=== PATIENT | female | born 1985 | race Caucasian/White ===

== ENCOUNTER 2018-08-01 07:26 | Day surgery (SDC) | payer BC ==
[2018-08-01] MEDS ORDERED: DIPHENHYDRAMINE 50 MG in SODIUM CHLORIDE 50 ML IVPB ONE (08:30)
[2018-08-01] MEDS ORDERED: ACETAMINOPHEN 325 MG TABLET (FP) PO ONE (08:30)
[2018-08-01] MEDS ORDERED: FERRIC CARBOXYMALTOSE 750 MG in SODIUM CHLORIDE 250 ML IVPB ONE (09:00)
[2018-08-01 13:11] VITALS: TEMP 98.1
[2018-08-01 13:12] VITALS: BP 125/68; PULSE 69
== END 2018-08-01 10:15 | disposition home or self-care (01) ==
LOC: JONCCHEMO 07:26 → JONCNONCHE 07:26 → J7W 08:44 → JONCNONCHE 10:15
PROVIDERS: ATTEND Internal Medicine Hematology & Oncology
PROC: 3E033GC Introduction of Other Therapeutic Substance into Peripheral Vein, Percutaneous Approach (ICD-10-PCS; principal; 2018-08-01)
DX: D50.9 Iron deficiency anemia, unspecified (principal)
CPT/HCPCS: 96365; J1439

== ENCOUNTER 2018-08-08 07:24 | Day surgery (SDC) | payer BC ==
[2018-08-08] MEDS ORDERED: ACETAMINOPHEN 325 MG TABLET (FP) PO ONE (08:45)
[2018-08-08] MEDS ORDERED: FERRIC CARBOXYMALTOSE 750 MG in SODIUM CHLORIDE 250 ML IVPB ONE (09:15)
[2018-08-08 09:16] VITALS: TEMP 98
[2018-08-08 12:59] VITALS: BP 110/69; PULSE 64
== END 2018-08-08 11:30 | disposition home or self-care (01) ==
LOC: JONCNONCHE 07:24 → J7W 08:44 → JONCNONCHE 11:30
PROVIDERS: ATTEND Internal Medicine Hematology & Oncology
PROC: 3E033GC Introduction of Other Therapeutic Substance into Peripheral Vein, Percutaneous Approach (ICD-10-PCS; principal; 2018-08-08)
DX: D50.9 Iron deficiency anemia, unspecified (principal)
CPT/HCPCS: 96365; J1439

== ENCOUNTER 2021-10-01 19:40 | Inpatient (IN) | payer BC ==
[2021-10-01 21:52] LABS: BASO % 0.8 % (0-2.0); EOS % 0.3 % (0-4.5); HEMATOCRIT 36.2 % (32.4-45.2); HEMOGLOBIN 12.2 GM/dL (10.7-15.3); LYMPH % 25.7 % (8-40); MCH 27.8 pg (25.7-33.7); MCHC 33.6 g/dl (32.0-36.0); MEAN CELL VOLUME 82.7 fl (80-96); MEAN PLT VOLUME 10.1 fl (7.5-11.1); MONO % 10.1 % (3.8-10.2); NEUT % 63.1 % (42.8-82.8); PLATELET COUNT 164 10^3/uL (134-434); RBC 4.38 M/mm3 (3.60-5.2); RDW 15.3 % (11.6-15.6); RETICULOCYTES 1.76 % (0.5-1.5); WHITE BLOOD COUNT 5.1 K/mm3 (4.0-10.0)
[2021-10-01 22:00] LABS: INR 0.99 (0.83-1.09); PROTHROMBIN TIME (PATIENT) 11.4 SEC (9.7-13.0)
[2021-10-01] MEDS ORDERED: ELECTROLYTE-148 SOLN 1,000 ML IV SCH (22:00)
[2021-10-01 22:04] LABS: ACTIVATED PTT 29.5 SECONDS (25.2-36.5)
[2021-10-01 22:12] LABS: BLOOD UREA NITROGEN 10.9 mg/dL (7-18); CALCIUM 8.7 mg/dL (8.5-10.1)
[2021-10-01 22:15] LABS: CREATININE 0.6 mg/dL (0.55-1.3)
[2021-10-01 22:16] LABS: URIC ACID 4.4 mg/dL (2.6-7.2)
[2021-10-01] MEDS ORDERED: MAGNESIUM SULFATE 20GM/500ML - 20 GM/500 ML INFUS.BAG ONE (22:53)
[2021-10-01] MEDS ORDERED: MAGNESIUM SULFATE 20GM/500ML - 20 GM/500 ML INFUS.BAG IVPB SCH (23:00)
[2021-10-01] MEDS: ELECTROLYTE-148 SOLN 1,000 ML IV SCH (23:00)
[2021-10-01] MEDS ORDERED: MAGNESIUM 4GM/H20 - 4 GM/100 ML IVPB IVPB SCH (23:00)
[2021-10-01 23:18] LABS: EPI CELLS >36 /uL (0-25.1); HYALINE CASTS 18 /uL (0-3.1); URINE APPEARANCE CLOUDY; URINE BACTERIA 4294 /uL (0-1359); URINE BILIRUBIN 1+ (NEGATIVE); URINE COLOR DK YELLOW; URINE GLUCOSE (UA) NEGATIVE (NEGATIVE); URINE KETONE TRACE (NEGATIVE); URINE LEUK ESTERASE TRACE (NEGATIVE); URINE NITRITE NEGATIVE (NEGATIVE); URINE PROTEIN 4+ (NEGATIVE); URINE RBC 45 /uL (0-23.9); URINE WBC 22 /uL (0-25.8)
[2021-10-01 23:23] VITALS: BMI 44.0
[2021-10-02] MEDS: ELECTROLYTE-148 SOLN 1,000 ML IV SCH (05:00)
[2021-10-02 05:53] LABS: BASO % 0.4 % (0-2.0); EOS % 0.3 % (0-4.5); HEMATOCRIT 35.8 % (32.4-45.2); HEMOGLOBIN 11.5 GM/dL (10.7-15.3); LYMPH % 29.2 % (8-40); MCH 26.9 pg (25.7-33.7); MCHC 32.1 g/dl (32.0-36.0); MEAN CELL VOLUME 83.7 fl (80-96); MEAN PLT VOLUME 10.5 fl (7.5-11.1); MONO % 8.9 % (3.8-10.2); NEUT % 61.2 % (42.8-82.8); PLATELET COUNT 156 10^3/uL (134-434); RBC 4.28 M/mm3 (3.60-5.2); RDW 15.3 % (11.6-15.6)
[2021-10-02 05:54] LABS: RETICULOCYTES 2.17 % (0.5-1.5)
[2021-10-02 06:07] LABS: INR 0.94 (0.83-1.09); PROTHROMBIN TIME (PATIENT) 10.8 SEC (9.7-13.0)
[2021-10-02 06:09] LABS: ACTIVATED PTT 27.6 SECONDS (25.2-36.5)
[2021-10-02 06:13] LABS: CALCIUM 8.5 mg/dL (8.5-10.1); GAMMA GLUTAMYL TRANSPEPTIDASE 18 U/L (5-85); MAGNESIUM 3.6 mg/dL (1.8-2.4)
[2021-10-02 06:16] LABS: SGOT/AST 58 U/L (15-37); SGPT/ALT 79 U/L (13-61); URIC ACID 4.6 mg/dL (2.6-7.2)
[2021-10-02 06:17] LABS: CREATININE 0.4 mg/dL (0.55-1.3)
[2021-10-02] MEDS ORDERED: morphine SULFATE/PF 1 MG/2 ML (2cc Syringe - QUVA) ONE (07:39)
[2021-10-02] MEDS ORDERED: OXYTOCIN 20 UNITS in 0.9% NS 20 UNIT/1,000 ML INFUS.BAG IV ONE ×2 (07:40→17:48)
[2021-10-02] MEDS ORDERED: METHYLERGONOVINE MALEATE 0.2 MG/1 ML AMP IM PRN (07:46)
[2021-10-02] MEDS ORDERED: ePHEDrine SULFATE 50 MG/1 ML AMPULE ONE (07:51)
[2021-10-02] MEDS ORDERED: OXYTOCIN 10 UNITS/ML VIAL ONE ×2 (08:53→08:54)
[2021-10-02] MEDS ORDERED: ONDANSETRON 4 MG/2 ML VIAL ONE (08:54)
[2021-10-02] MEDS ORDERED: ceFAZolin SODIUM 1 GM VIAL ONE ×2 (08:54→17:29)
[2021-10-02] MEDS: MAGNESIUM SULFATE 20GM/500ML - 20 GM/500 ML INFUS.BAG IVPB SCH ×2 (09:30→15:00)
[2021-10-02] MEDS ORDERED: ONDANSETRON 4 MG/2 ML VIAL IVPUSH PRN (09:34)
[2021-10-02] MEDS ORDERED: morphine SULFATE/PF 1 MG/2 ML (2cc Syringe - QUVA) SPIN ONE (09:34)
[2021-10-02 09:36] LABS: CORD HCO3 26.3 mmHg (20-29); CORD PCO2 68.2 mmHg (30-78); CORD pH 7.204 (7.14-7.44)
[2021-10-02 09:39] LABS: CORD BASE EXCESS -4.1 mmol/L (0-2); CORD HCO3 23.9 mmHg (20-29); CORD PCO2 53.5 mmHg (30-78); CORD pH 7.267 (7.14-7.44)
[2021-10-02] MEDS ORDERED: MAGNESIUM SULFATE 20GM/500ML - 20 GM/500 ML INFUS.BAG ONE (14:58)
[2021-10-02 15:16] LABS: BASO % 0.6 % (0-2.0); EOS % 0.2 % (0-4.5); HEMATOCRIT 36.5 % (32.4-45.2); HEMOGLOBIN 11.8 GM/dL (10.7-15.3); LYMPH % 20.4 % (8-40); MCHC 32.3 g/dl (32.0-36.0); MEAN CELL VOLUME 83.4 fl (80-96); MONO % 7.8 % (3.8-10.2); PLATELET COUNT 165 10^3/uL (134-434); RBC 4.37 M/mm3 (3.60-5.2); RDW 15.2 % (11.6-15.6); WHITE BLOOD COUNT 6.4 K/mm3 (4.0-10.0)
[2021-10-02 15:36] LABS: ALBUMIN 2.1 g/dl (3.4-5.0); BLOOD UREA NITROGEN 9.6 mg/dL (7-18)
[2021-10-02 15:39] LABS: CREATININE 0.4 mg/dL (0.55-1.3)
[2021-10-02 15:41] LABS: BILIRUBIN,TOTAL 0.5 mg/dL (0.2-1); TOT PROT 5.4 g/dl (6.4-8.2)
[2021-10-02 15:43] LABS: MAGNESIUM 4.9 mg/dL (1.8-2.4)
[2021-10-02] MEDS: CEFAZOLIN 1 GM in DEXTROSE 5%-WATER - 1 GM/50 ML IVPB IVPB SCH (17:25)
[2021-10-02] MEDS ORDERED: oxyCODONE HCL 5 MG TABLET PO PRN (19:46)
[2021-10-02] MEDS: ACETAMINOPHEN 325 MG TABLET (FP) PO PRN (21:34)
[2021-10-02] MEDS ORDERED: ACETAMINOPHEN 325 MG TABLET (FP) ONE (21:35)
[2021-10-02] MEDS: oxyCODONE HCL 5 MG TABLET PO PRN (21:39)
[2021-10-02] MEDS ORDERED: oxyCODONE HCL 5 MG TABLET ONE (21:41)
[2021-10-03] MEDS: CEFAZOLIN 1 GM in DEXTROSE 5%-WATER - 1 GM/50 ML IVPB IVPB SCH ×2 (00:43→08:38)
[2021-10-03] MEDS: SIMETHICONE 80 MG TAB.CHEW (FP) PO PRN ×2 (02:33→08:38)
[2021-10-03] MEDS: oxyCODONE HCL 5 MG TABLET PO PRN ×2 (02:44→08:39)
[2021-10-03] MEDS ORDERED: BISACODYL 10 MG SUPP.RECT RC PRN (07:46)
[2021-10-03] MEDS ORDERED: DEXTROSE 5%-WATER - 50 ML IVPB ONE (08:25)
[2021-10-03] MEDS ORDERED: ceFAZolin SODIUM 1 GM VIAL ONE (08:25)
[2021-10-03 08:57] LABS: BASO % 0.4 % (0-2.0); EOS % 0.2 % (0-4.5); HEMATOCRIT 34.9 % (32.4-45.2); HEMOGLOBIN 11.3 GM/dL (10.7-15.3); LYMPH % 16.3 % (8-40); MCH 27.2 pg (25.7-33.7); MCHC 32.5 g/dl (32.0-36.0); MEAN CELL VOLUME 83.6 fl (80-96); MEAN PLT VOLUME 10.2 fl (7.5-11.1); MONO % 7.8 % (3.8-10.2); NEUT % 75.3 % (42.8-82.8); PLATELET COUNT 170 10^3/uL (134-434); RBC 4.17 M/mm3 (3.60-5.2); RDW 15.8 % (11.6-15.6); WHITE BLOOD COUNT 6.4 K/mm3 (4.0-10.0)
[2021-10-03] MEDS ORDERED: DIPHTH,PERTUSS(ACELL),TET 0.5 ML DISP.SYRIN IM ONE (10:00)
[2021-10-03] MEDS ORDERED: PNEUMOC 13-VAL CONJ-DIP CRM/PF 0.5 ML DISP.SYRIN IM ONE (10:00)
[2021-10-03] MEDS: ENOXAPARIN NA (PORCINE) 40 MG/0.4 ML DISP.SYRIN SQ SCH (10:55)
[2021-10-03] MEDS: IBUPROFEN 600 MG TABLET (FP) PO PRN (14:44)
[2021-10-04] MEDS: IBUPROFEN 600 MG TABLET (FP) PO PRN ×3 (00:22→15:59)
[2021-10-04] MEDS: SIMETHICONE 80 MG TAB.CHEW (FP) PO PRN ×2 (00:22→09:34)
[2021-10-04] MEDS: ENOXAPARIN NA (PORCINE) 40 MG/0.4 ML DISP.SYRIN SQ SCH (09:15)
[2021-10-04] MEDS: NIFEdipine E.R. 30 MG TABLET PO SCH (09:38)
[2021-10-04] MEDS: metFORMIN HCL 500 MG TABLET (FP) PO SCH (16:00)
[2021-10-04] MEDS: ACETAMINOPHEN 325 MG TABLET (FP) PO PRN (19:26)
[2021-10-04] MEDS: OXYTOCIN 20 UNITS in 0.9% NS 20 UNIT/1,000 ML INFUS.BAG IV SCH ×2 (19:55→19:58)
[2021-10-04] MEDS: MAGNESIUM SULFATE 20GM/500ML - 20 GM/500 ML INFUS.BAG IVPB SCH (19:59)
[2021-10-05] MEDS: metFORMIN HCL 500 MG TABLET (FP) PO SCH (06:09)
[2021-10-05] MEDS: IBUPROFEN 600 MG TABLET (FP) PO PRN (07:45)
[2021-10-05 08:36] LABS: BASO % 0.4 % (0-2.0); EOS % 1.3 % (0-4.5); HEMATOCRIT 33.5 % (32.4-45.2); HEMOGLOBIN 11.2 GM/dL (10.7-15.3); MCH 28.1 pg (25.7-33.7); MCHC 33.5 g/dl (32.0-36.0); MEAN CELL VOLUME 83.9 fl (80-96); MEAN PLT VOLUME 9.4 fl (7.5-11.1); MONO % 8.6 % (3.8-10.2); NEUT % 57.7 % (42.8-82.8); PLATELET COUNT 181 10^3/uL (134-434); RBC 3.99 M/mm3 (3.60-5.2); RDW 15.9 % (11.6-15.6); WHITE BLOOD COUNT 4.4 K/mm3 (4.0-10.0)
[2021-10-05 08:38] LABS: SGOT/AST 39 U/L (15-37); SGPT/ALT 51 U/L (13-61)
[2021-10-05 09:15] VITALS: BP 156/73; PULSE 83; TEMP 98
[2021-10-05] MEDS: ENOXAPARIN NA (PORCINE) 40 MG/0.4 ML DISP.SYRIN SQ SCH (09:44)
[2021-10-05] MEDS: NIFEdipine E.R. 30 MG TABLET PO SCH (09:44)
== END 2021-10-05 11:35 | disposition home or self-care (01) | DRG 788 ==
LOC: JLDR 19:40 → J3W 10-02 22:51
PROVIDERS: ADMIT Obstetrics & Gynecology; ATTEND Obstetrics & Gynecology
PROC: 10D00Z1 Extraction of Products of Conception, Low, Open Approach (ICD-10-PCS; principal; 2021-10-01)
DX: O14.14 Severe pre-eclampsia complicating childbirth (principal); O24.12 Pre-existing type 2 diabetes mellitus, in childbirth; Z3A.35 35 weeks gestation of pregnancy; Z79.84 Long term (current) use of oral hypoglycemic drugs; Z37.0 Single live birth
CPT/HCPCS: 36415; 36600; 80048; 80053; 81003; 82803; 82962; 82977; 83010; 83735; 84450; 84460; 84550; 85025; 85032; 85045; 85384; 85610; 85730; 86780; 86850; 86900; 86901; 88307-TC; 90715; C9803; U0003; U0005